=== PATIENT | male | born 1975 | race African-American/Black ===

== ENCOUNTER 2021-06-21 08:27 | Day surgery (SDC) | payer OTHER ==
[~2021-06-21] VITALS: Ht 172.7 cm; Wt 80.7 kg
[~2021-06-21 08:27] MED LIST: B-12100021 PO; CIAL10TA PO; D32000CA PO; FISH120016 PO; FOLI400T5 PO; GNP250TA9 PO; NS 1,000 ML IV ONE; ONETAB9 PO; SM I160T PO; VITA-257 PO; VITA500C24 PO; VITATAB73 PO
[2021-06-21] MEDS ORDERED: propofoL 200 MG/20 ML VIAL As Ordered ONE (10:24)
[2021-06-21] MEDS ORDERED: LIDOCAINE 2% 100MG/5ML SDV (FOR ANES.) As Ordered ONE (10:24)
[2021-06-21] MEDS ORDERED: SIMETHICONE 40MG/0.6ML DROPS 30ML As Ordered ONE (10:24)
[2021-06-21 10:54] VITALS: BP 119/77
== END 2021-06-21 10:55 | disposition home or self-care (01) ==
LOC: M OPP 08:27
PROVIDERS: ATTEND Internal Medicine Gastroenterology
DX: Z12.11 Encounter for screening for malignant neoplasm of colon (principal); K63.5 Polyp of colon; K64.8 Other hemorrhoids; Z79.899 Other long term (current) drug therapy; Z88.0 Allergy status to penicillin